=== PATIENT | male | born 1990 | race Caucasian/White ===

== ENCOUNTER 2018-11-18 14:49 | Emergency (ER) | payer SELFPAY ==
[~2018-11-18] VITALS: Ht 162.6 cm; Wt 54.4 kg
[2018-11-18] MEDS ORDERED: KEPPRA XR750 MG ORAL (14:59)
[2018-11-18 15:00] VITALS: BP 111/77
[2018-11-18] MEDS ORDERED: Bacitracin Oint UD TOPIC ONE (15:30)
[2018-11-18] MEDS ORDERED: Lidocaine 1% Plain 30 ml INJ ONE (15:30)
--- NOTE | 2018-11-18 16:49 | Emergency Room Report ---
History of Present Illness General Chief Complaint: Laceration Source: Patient Present Illness HPI 28-year-old male presents to the emergency department complaining of a right index finger laceration status post laceration from a music box mechanic this afternoon. Patient reports he continues to have bleeding. Patient reports some numbness/tingling around site of laceration. Patient denies taking blood thinning medications and reports that he is up-to-date with his tetanus. He denies pain at this time. Pt. is left hand dominant. Allergies: Coded Allergies: No Known Allergies (Unverified , 11/18/18) Patient History Past Medical History: see triage record Past Surgical History: none Pertinent Family History: none Immunizations: UTD Reviewed Nursing Documentation: PMH: Agreed; PSxH: Agreed Nursing Documentation-PMH Past Medical History: No History, Except For Hx Seizures: Yes Review of Systems All Other Systems: negative except mentioned in HPI Physical Exam Vital Signs Date Time Temp Pulse Resp B/P (MAP) Pulse Ox O2 Delivery O2 Flow Rate FiO2 11/18/18 14:54 98.2 79 20 113/78 99 Room Air Sp02 EP Interpretation: reviewed, normal General Appearance: no apparent distress, alert, GCS 15, non-toxic Head: normocephalic, atraumatic Eyes: bilateral eye normal inspection, bilateral eye PERRL ENT: hearing grossly normal, normal voice Neck: full range of motion Respiratory: chest non-tender, lungs clear, normal breath sounds, speaking full sentences Cardiovascular #1: regular rate, rhythm, no edema Gastrointestinal: normal bowel sounds, non tender, soft Rectal: deferred Genitourinary: normal inspection Musculoskeletal: back normal, gait/station normal, normal range of motion, non- tender Neurologic: alert, oriented x3, responsive, motor strength/tone normal, sensory intact, speech normal, other - NVI, grossly normal Psychiatric: judgement/insight normal Skin: normal color, no rash, warm/dry, well hydrated, laceration - Right index finger flap laceration approx 2 cm in length Lymphatic: no adenopathy Procedures Laceration/Wound Repair Laceration/Wound Repair : Consent: Verbal Wound Location: upper extremity - Right Index Finger Wound's Depth, Shape: flap Wound Length (cm): 2 Wound Explored: clean Anesthesia: 1% Lidocaine Volume Anesthetic (ccs): 5 Wound Repaired With: sutures Suture Size/Type: 4:0 Number of Sutures: 6 Layer Closure?: No Sterile Dressing Applied?: Yes Splint Applied?: Yes Type of Splint Applied: Finger Splint Sling Applied?: No Patient Tolerated: Well Complications: None Medical Decision Making PA Attestation Dr. Powell is my supervising Physician whom patient management has been discussed with. Diagnostic Impression: Primary Impression: Laceration ER Course 28-year-old male presents to the emergency department complaining of a right index finger laceration status post laceration from a music box mechanic this afternoon. Patient reports he continues to have bleeding. Patient reports some numbness/tingling around site of laceration. Patient denies taking blood thinning medications and reports that he is up-to-date with his tetanus. He denies pain at this time. Pt. is left hand dominant. Ddx considered but are not limited to laceration, tendon injury, cellulitis, amputation Vital signs: are WNL, pt. is afebrile H&PE are most consistent with: Right index finger flap laceration approx 2 cm in length ORDERS: none required at this time, the diagnosis is clinical ED INTERVENTIONS: -Tetanus vaccine was administered as pt. vaccination status was unknown. - The wound was copiously irrigated with normal saline, and explored for foreign body for which no FB was found. - pt. is anesthetized with 1%lidocaine w. epi. - The wound was approximated and closed using 6 interrupted 4.0 Prolene sutures. -Bacitracin and sterile dressing is applied. Discussed with patient: That we make every effort to approximate the laceration as best as we can so that scarring will be as cosmetically pleasing as possible with our limited cosmetic skill set in the Emergency dept. Regardless of our best efforts there will be scarring after laceration repair. The extent of scarring is unknown at this time. DISCHARGE: At this time pt. is stable for d/c to home. Will provide printed patient care instructions, and any necessary prescriptions. Care plan and follow up instructions have been discussed with the patient prior to discharge. Last Vital Signs Date Time Temp Pulse Resp B/P (MAP) Pulse Ox O2 Delivery O2 Flow Rate FiO2 11/18/18 15:00 98.7 76 18 111/77 99 Room Air Disposition: HOME, SELF-CARE Condition: Stable Scripts Acetaminophen* (TYLENOL EXTRA STRENGTH*) 500 Mg Tablet 500 MG ORAL Q6H, #15 TAB 0 Refills Prov: Linda Ortiz 11/18/18 Bacitracin/Polymyxin B Sulfate (BACITRACIN-POLYMYXIN OINTMENT) 28.35 Gm Oint...g. 1 APPLIC TP BID, #28.3 GM Prov: Linda Ortiz 11/18/18 Cephalexin* (KEFLEX*) 500 Mg Capsule 500 MG ORAL EVERY 12 HOURS for 7 Days, #14 CAP 0 Refills Prov: Linda Ortiz 11/18/18 Referrals: NOT CHOSEN IPA/MD,REFERRING (PCP) Patient Instructions: Laceration Care, Adult Additional Instructions: Take medications as directed. Follow up with a Primary Care Provider in 3-5 days, even if your symptoms have resolved. --Please review list of primary care clinics, if you do not already have a primary care provider Return sooner to ED if new symptoms occur, or current symptoms become worse. - Please note that this Emergency Department Report was dictated using [employer] shop supervisor technology software, occasionally this can lead to erroneous entry secondary to interpretation by the dictation equipment. Linda Ortiz Nov 18, 2018 16:48
[2018-11-18] MEDS ORDERED: CEPHALEXIN500 MG ORAL (16:50)
[2018-11-18] MEDS ORDERED: BACITRACIN-P28.35 GM TP (16:50)
[2018-11-18] MEDS ORDERED: TYLENOL EXTRA500 MG ORAL (16:50)
[2018-11-18 17:17] VITALS: BP 113/79
== END 2018-11-18 17:17 | disposition home or self-care (01) ==
LOC: EMR 15:32
DX: S61.210A Laceration without foreign body of right index finger without damage to nail, initial encounter (principal); W27.8XXA Contact with other nonpowered hand tool, initial encounter; Y92.89 Other specified places as the place of occurrence of the external cause; R56.9 Unspecified convulsions
CPT/HCPCS: 12001; 99283; J2001